=== PATIENT | female | born 1985 | race Caucasian/White ===

== ENCOUNTER → 2024-01-29 | Outpatient (CLI) | payer OTHER, SELFPAY | END | disposition home or self-care (01) | LOC: LABSPEC 16:59 | PROVIDERS: PCP Registered Nurse; Visit Provider Registered Nurse | DX: Z00.00 Encounter for general adult medical examination without abnormal findings (principal) ==

== ENCOUNTER → 2024-01-29 | Outpatient (CLI) | payer OTHER, SELFPAY ==
[2024-02-01 22:07] LABS: Chlamydia By Nucleic Acid AMP Negative (Negative); Gonococcus By Nucleic Acid AMP Negative (Negative)
[2024-02-06 10:41] LABS: HPV APTIMA, High Risk Positive (Negative); HPV Genotype 16, Aptima Negative (Negative); HPV Genotype 18,45 Aptima Negative (Negative)
== END | disposition home or self-care (01) ==
PROVIDERS: Referring Provider Registered Nurse; Visit Provider Registered Nurse
DX: Z12.4 Encounter for screening for malignant neoplasm of cervix (principal); O99.210 Obesity complicating pregnancy, unspecified trimester; E66.9 Obesity, unspecified; Z3A.00 Weeks of gestation of pregnancy not specified
CPT/HCPCS: 87086; 87491; 87591; 87624; 88175; G0145

== ENCOUNTER → 2024-02-08 | Outpatient (CLI) | payer OTHER, SELFPAY ==
[2024-02-08 17:32] LABS: Absolute Lymphocyte Count 1.86 X10^3/uL (0.83-4.51); Absolute Neutrophil Count 4.8 X10^3/uL (2.0-7.7); Basophil# 0.03 X10^3/uL; Basophil% 0.4 % (0-1); Eosinophil# 0.18 X10^3/uL; Eosinophils% 2.5 % (0-5); Hematocrit 32.9 % (37-47); Hemoglobin 11.4 g/dL (12.0-15.0); Lymphocyte # 1.86 X10^3/ul (0.83-4.51); Lymphocyte % 25.4 % (19-41); Mean Corp Hgb Conc 34.7 g/dL (32-36); Mean Corpuscular Hgb 29.8 pg (27.0-32.0); Mean Corpuscular Volume 86.1 fL (81-99); Monocyte# 0.47 X10^3/uL; Monocyte% 6.4 % (0-10); NRBC Flagged by Analyzer 0 % (0-5); Neutrophil # 4.75 X10^3/uL (2.7-7.7); Neutrophil % 64.8 % (47-70); Platelet Count 207 K/mm3 (150-450); RBC Distribution Width CV 12.6 % (11.6-14.6); RBC Distribution Width SD 39.4 fl (35.1-43.9); Red Blood Count 3.82 M/mm3 (4.2-5.4); White Blood Count 7.3 K/mm3 (4.4-11.0)
[2024-02-08 21:37] LABS: HIV - WCH Non-Reactive (Nonreactive); Hepatitis B Surface Antigen Non-Reactive (Nonreactive); Hepatitis C Antibody Non-Reactive (Nonreactive); Rubella IgG Reactive (Nonreactive); Syphilis Antibodies Non-reactive
== END | disposition home or self-care (01) ==
LOC: LAB 16:12
PROVIDERS: Referring Provider Registered Nurse; Visit Provider Registered Nurse
DX: O99.210 Obesity complicating pregnancy, unspecified trimester (principal); E66.9 Obesity, unspecified; Z3A.00 Weeks of gestation of pregnancy not specified
CPT/HCPCS: 36415; 83036; 85025; 86703; 86762; 86780; 86803; 86850; 86900; 86901; 87340

== ENCOUNTER → 2024-06-10 | Outpatient (CLI) | payer MEDICAID, SELFPAY ==
[2024-06-10 16:28] LABS: Absolute Lymphocyte Count 1.33 X10^3/uL (0.83-4.51); Absolute Neutrophil Count 6.4 X10^3/uL (2.0-7.7); Basophil# 0.02 X10^3/uL; Basophil% 0.2 % (0-1); Eosinophil# 0.13 X10^3/uL; Eosinophils% 1.5 % (0-5); Hematocrit 31.9 % (37-47); Hemoglobin 10.7 g/dL (12.0-15.0); Lymphocyte # 1.33 X10^3/ul (0.83-4.51); Lymphocyte % 15.5 % (19-41); Mean Corp Hgb Conc 33.5 g/dL (32-36); Mean Corpuscular Hgb 29.2 pg (27.0-32.0); Mean Corpuscular Volume 87.2 fL (81-99); Mean Platelet Vol. 9.2 fl (6.2-12.0); Monocyte# 0.59 X10^3/uL; Monocyte% 6.9 % (0-10); NRBC Flagged by Analyzer 0 % (0-5); Neutrophil # 6.36 X10^3/uL (2.7-7.7); Neutrophil % 74.2 % (47-70); Platelet Count 204 K/mm3 (150-450); RBC Distribution Width CV 13.5 % (11.6-14.6); RBC Distribution Width SD 42.4 fl (35.1-43.9); Red Blood Count 3.66 M/mm3 (4.2-5.4); White Blood Count 8.6 K/mm3 (4.4-11.0)
[2024-06-10 16:35] LABS: Glucose Challenge Gest 1H 50g 157 mg/dL (70-140)
[2024-06-13 19:21] LABS: HIV - WCH Non-Reactive (Nonreactive); Syphilis Antibodies Non-reactive
== END | disposition home or self-care (01) ==
LOC: BWCLAB 14:34
PROVIDERS: Advanced Practice Midwife; Referring Provider Obstetrics & Gynecology; Visit Provider Obstetrics & Gynecology
DX: O09.90 Supervision of high risk pregnancy, unspecified, unspecified trimester (principal); Z3A.00 Weeks of gestation of pregnancy not specified; Z13.1 Encounter for screening for diabetes mellitus
CPT/HCPCS: 36415; 82950; 85025; 86703; 86780

== ENCOUNTER → 2024-07-04 | Outpatient (CLI) | payer MEDICAID, SELFPAY ==
[2024-07-04 07:36] LABS: Bedside Glucose 97 mg/dL (74-106)
[2024-07-04 07:45] LABS: Glucose GTT-Gestation. Fasting 101 mg/dL (<105)
[2024-07-04 09:10] LABS: Glucose GTT-Gestational 1 Hr 195 mg/dL (<190)
[2024-07-04 11:40] LABS: Glucose GTT-Gestational 2 Hr 214 mg/dL (<165)
[2024-07-04 11:54] LABS: Glucose GTT-Gestational 3 Hr 90 L (<145)
== END | disposition home or self-care (01) ==
LOC: LAB 07:08
PROVIDERS: Referring Provider Advanced Practice Midwife; Visit Provider Advanced Practice Midwife
DX: O99.810 Abnormal glucose complicating pregnancy (principal); Z3A.00 Weeks of gestation of pregnancy not specified
CPT/HCPCS: 36415; 82951; 82952; 82962

== ENCOUNTER → 2024-08-05 | Outpatient (CLI) | payer MEDICAID, SELFPAY | END | disposition home or self-care (01) | LOC: LABSPEC 16:16 | PROVIDERS: Referring Provider Obstetrics & Gynecology; Visit Provider Obstetrics & Gynecology | DX: O09.93 Supervision of high risk pregnancy, unspecified, third trimester (principal); Z3A.00 Weeks of gestation of pregnancy not specified | CPT/HCPCS: 87081 ==

== ENCOUNTER 2024-08-23 19:23 | Inpatient (IN) | payer MEDICAID, SELFPAY ==
[2024-08-23 19:33] VITALS: BMI 41.3
[2024-08-23 19:41] VITALS: BP 149/76; PULSE 104; O2SAT 97
[2024-08-23 19:48] VITALS: BP 147/89; BP 165/88; PULSE 93; PULSE 99; RESP 18; TEMP 37.1
[2024-08-23] MEDS: Lactated Ringers 1,000 ML 50 ML IV (20:30)
[2024-08-23 20:54] LABS: Absolute Lymphocyte Count 2.85 X10^3/uL (0.83-4.51); Absolute Neutrophil Count 6.5 X10^3/uL (2.0-7.7); Basophil# 0.04 X10^3/uL; Basophil% 0.4 % (0-1); Eosinophil# 0.17 X10^3/uL; Eosinophils% 1.6 % (0-5); Hematocrit 33.2 % (37-47); Hemoglobin 11.8 g/dL (12.0-15.0); Lymphocyte # 2.85 X10^3/ul (0.83-4.51); Mean Corp Hgb Conc 35.5 g/dL (32-36); Mean Corpuscular Hgb 30.5 pg (27.0-32.0); Mean Corpuscular Volume 85.8 fL (81-99); Monocyte# 0.94 X10^3/uL; Monocyte% 8.9 % (0-10); NRBC Flagged by Analyzer 0 % (0-5); Neutrophil # 6.46 X10^3/uL (2.7-7.7); Neutrophil % 61.2 % (47-70); Platelet Count 209 K/mm3 (150-450); RBC Distribution Width CV 13.3 % (11.6-14.6); RBC Distribution Width SD 41.1 fl (35.1-43.9); Red Blood Count 3.87 M/mm3 (4.2-5.4); White Blood Count 10.6 K/mm3 (4.4-11.0)
[2024-08-23] MEDS: 0.9% Saline Lock 10 ML Syringe IV (21:04)
[2024-08-23] MEDS: DiphenhydrAMINE 50 MG/ML Syringe IV (21:05)
[2024-08-23] MEDS: miSOPROStol 25 MCG TABLET VAGINAL (21:05)
[2024-08-23 22:17] LABS: Bedside Glucose 121 mg/dL (74-106)
[2024-08-23 22:17] LABS: Bedside Glucose 130 mg/dL (74-106); Syphilis Antibodies Nonreactive (Nonreactive)
[2024-08-23 22:24] LABS: ALB/GLOB Ratio 1.2 RATIO (0.9-2.4); AST(SGOT) 30 U/L (<=31); Alanine Aminotransfer ALT/SGPT 23 U/L (<=34); Albumin, Serum 3.6 g/dL (3.5-5.0); Alkaline Phosphatase 129 U/L (35-104); Anion Gap 14 (5-15); BUN 10 mg/dL (4-19); BUN/Creat Ratio 16.2 RATIO (10-20); Calcium 9.3 mg/dL (7.6-11.0); Carbon Dioxide 18.3 mmol/L (22.0-29.0); Chloride 102 mmol/L (96-108); Creatinine, Serum 0.6 mg/dL (0.6-1.0); EST Glomerular Filtration Rate 117 (>60); Estimated Creatinine Clearance 151.94 ml/min; Glucose 127 mg/dL (70-99); Potassium 3.8 mmol/L (3.3-5.1); Protein, Total 6.5 g/dL (5.9-8.4); Sodium Level 134 mmol/L (133-145); Total Bilirubin 0.19 mg/dL (0.00-1.30)
[2024-08-23] MEDS: Mag Hydrox/Al Hydrox/Simeth 30 ML UDC PO (22:38)
[2024-08-23 23:00] LABS: Bedside Glucose 103 mg/dL (74-106)
[2024-08-23] MEDS: metFORMIN HCl 1,000 MG Tablet 1000 MG PO (23:18)
[2024-08-23] MEDS: hydrOXYzine PAM 25 MG Capsule PO (23:18)
[2024-08-23 23:21] VITALS: BP 121/71; PULSE 86; RESP 16; TEMP 36.6; O2SAT 97
[2024-08-24] VITALS (72 sets, daily range): BP systolic 108–181; BP diastolic 56–115; PULSE 58–202; RESP 16–20; TEMP 36.4–38.1; O2SAT 80–100
[2024-08-24] MEDS: Lactated Ringers 1,000 ML 999 ML IV (00:52)
[2024-08-24 01:04] LABS: Bedside Glucose 102 mg/dL (74-106)
[2024-08-24] MEDS: Terbutaline 1 MG/ML Vial 0.25 MG SC (01:37)
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
--- NOTE | 2024-08-24 02:00 | PCM.PN.BLA ---
Progress Note seen for cat II tracing- cervix closed but recurrent lates. given dose of terbutaline. scanned and vertex, spontaneous movement seen and positive scalp stimulatiion, now cat I and reassuring. will give rest and reevaluate in 1 hour.
[2024-08-24 04:00] LABS: Bedside Glucose 103 mg/dL (74-106)
[2024-08-24] MEDS: fentaNYL 100 MCG/2 ML Ampul IV ×2 (04:40→05:51)
[2024-08-24] MEDS: Oxytocin 15 Units/NS 250ml 15 UNITS/250 ML IV.SOLN 2 UNITS IV (05:32)
[2024-08-24] MEDS: 0.9% Saline Lock 10 ML Syringe IV (05:51)
[2024-08-24 07:37] LABS: Bedside Glucose 88 mg/dL (74-106)
[2024-08-24] MEDS: fentaNYL-bupivacaine (epidural) 100 ML BAG EPIDURAL ×5 (07:50→21:55)
[2024-08-24] MEDS: Lactated Ringers 1,000 ML 200 ML IV ×3 (07:55→18:18)
[2024-08-24 11:29] LABS: Bedside Glucose 95 mg/dL (74-106)
[2024-08-24] MEDS: LACTATED RINGERS 500 ML 999 ML IV (12:47)
[2024-08-24] MEDS: Amnioinfusion- 0.9% NS 1,000 ML IV.SOLN. 1000 ML INTRA-UTER (13:04)
[2024-08-24 13:31] LABS: Bedside Glucose 75 mg/dL (74-106)
[2024-08-24] MEDS: Ondansetron 4 MG/2 ML Vial IV (14:24)
[2024-08-24 15:19] LABS: Bedside Glucose 111 mg/dL (74-106)
[2024-08-24 16:32] LABS: Bedside Glucose 86 mg/dL (74-106)
--- NOTE | 2024-08-24 17:15 | PCM.PN.BLA ---
Progress Note pitocin going up slowly do to tracing having late decels at higher doses, then when it is turned down the tracing returns to cat i. increased to 3 MU now. will recheck soon
[2024-08-24 17:38] LABS: Bedside Glucose 73 mg/dL (74-106)
[2024-08-24] MEDS: Acetaminophen 500 MG Tablet PO (18:11)
[2024-08-24 18:38] LABS: Bedside Glucose 65 mg/dL (74-106)
[2024-08-24 18:38] LABS: Bedside Glucose 73 mg/dL (74-106)
[2024-08-24 18:55] LABS: Bedside Glucose 63 mg/dL (74-106)
[2024-08-24 18:55] LABS: Bedside Glucose 105 mg/dL (74-106)
[2024-08-24] MEDS: 0.9% Normal Saline 1,000 ML IV.SOLN. 300 ML INTRA-UTER (21:40)
[2024-08-24 22:00] LABS: Bedside Glucose 106 mg/dL (74-106)
[2024-08-24 22:25] LABS: Bedside Glucose 66 mg/dL (74-106)
[2024-08-24] MEDS: hydrOXYzine PAM 25 MG Capsule PO (22:28)
[2024-08-24 23:04] LABS: Bedside Glucose 55 mg/dL (74-106)
[2024-08-24 23:04] LABS: Bedside Glucose 88 mg/dL (74-106)
[2024-08-25] VITALS (33 sets, daily range): BP systolic 121–148; BP diastolic 58–99; PULSE 68–141; RESP 16–18; TEMP 36.4–37.9; O2SAT 96–100
[2024-08-25] MEDS: Acetaminophen 500 MG Tablet PO (00:14)
[2024-08-25] MEDS: Gentamicin IV 270 MG in Dextrose 5%-Water (50mL Bag) 50 ML 100 MG IVPB (00:48)
--- NOTE | 2024-08-25 00:50 | PCM.PN.BLA ---
Progress Note patient complete and pushing, tachycardia started on clinda and gent. pushing fairly effectively, taking direction well. continue exp management
[2024-08-25 01:08] LABS: Bedside Glucose 100 mg/dL (74-106)
[2024-08-25] MEDS: Clindamycin 900 MG/50 ML BAG 75 MG IV (01:43)
[2024-08-25] MEDS: Lidocaine 1% (20 ml mdv) 20 ML Vial INFILT (01:49)
[2024-08-25] MEDS: fentaNYL-bupivacaine (epidural) 100 ML BAG EPIDURAL (02:07)
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
--- NOTE | 2024-08-25 02:35 | DCINST_ITS ---
Discharge Instructions Diet Discharge Diet: No restrictions DC O2, CPAP, BIPAP needs Home O2 Discharge instructions: No Dressing / Incision Discharge Activity: Return to Normal Activity, May Not Drive (while taking narcotic pain medications.) and May Shower May resume sexual activity in: 4-6 weeks Dressing / Incision Call your doctor if your incision/area has: Continuous Slow Oozing, Sudden Increased Bleeding, Increased Pain/ Swelling, Increased Redness and Foul Smelling Discharge Follow Up Care Please Follow Up With: Brinda Vergara MD When: Call [phone] to make an appointment with your doctor in 6 weeks. If you had elevated blood pressure or 4th degree laceration, you will need to be seen in 2 weeks. Test Results: Test results from this visit will be discussed in further detail at your follow- up appointment, if applicable. Discharge Plan Admission Admit Date/Time: 08/23/24 19:23 Attending Provider: Brinda Vergara Primary Care Provider: Care PhysicianJen Primary Discharge Orders/Prescriptions Prescriptions: No Action Claritin 10 mg tablet,chewable 10 mg PO DAILY (DME) breast pump Device See Rx Instructions .ROUTE .MEDSUPPLY Qty: 1 0RF Rx Instructions: As directed ondansetron HCl 4 mg tablet 4 mg PO Q6H PRN (Reason: nausea and vomiting) Qty: 30 4RF (DME) Blood Glucose Test Strip See Rx Instructions .MEDSUPPLY Qty: 120 5RF Rx Instructions: As directed-fasting & 2 hr post meals (DME) blood-glucose meter Misc See Rx Instructions .MEDSUPPLY Qty: 1 0RF Rx Instructions: As directed- Test fasting and 2 hours after meals (DME) lancets Misc See Rx Instructions .MEDSUPPLY Qty: 200 5RF Rx Instructions: As directed-fasting & 2 hr post meals Prenate Elite (iron asp glyc) 20 mg iron- 1 mg tablet 1 tab PO DAILY Qty: 30 8RF metformin 500 mg tablet 1,000 mg PO QDAY Qty: 60 3RF Referrals / Follow Up: Care Physician,No Primary [Primary Care Provider] - Disposition Disposition (needs filled in before D/C Order can be placed): Home, Self Care
[2024-08-25 03:28] LABS: Bedside Glucose 91 mg/dL (74-106)
[2024-08-25 03:28] LABS: Bedside Glucose 86 mg/dL (74-106)
[2024-08-25] MEDS: Oxytocin 15 Units/NS 250ml 15 UNITS/250 ML IV.SOLN 83 UNITS IV (03:53)
[2024-08-25 04:15] LABS: Bedside Glucose 87 mg/dL (74-106)
--- NOTE | 2024-08-25 04:39 | PLAC_PTH ---
PATIENT: SHEILA GARSIA LOC: [facility] U#:[id number] AGE/SX: 39/F ROOM: WP003 RE08/23/[address]: Dr. Brinda Vergara MD : 1985 BED: 1 DIS: 08/27/2024 SPEC #: [id number] RECD: 08/25/24 04:47 STATUS: WESLEY GILL #: [id number] JULIANN: 08/25/24 04:[address]: Brinda Vergara DEPT: SURGICAL PATHOLOGY RECD BY: Brenden Novak ENTERED: 08/25/24 06:58 SP TYPE: PLACENTA OTHR DR: No Primary Care Phys Tissues: Placenta, NOS Procedures: Surgery Specimen Level V HEADER OPERATION: Vaginal delivery PRE-OP DIAGNOSIS: Routine TISSUE SUBMITTED: Placenta MICROSCOPIC DIAGNOSIS Mc placenta, 3rd trimester, 456 grams: * Acute chorioamnionitis. * Three vessel umbilical cord, unremarkable. * Mature chorionic villi with focal (limited) infarction. MICROSCOPIC DESCRIPTION Slides are reviewed. GROSS DESCRIPTION SPECIMEN: PLACENTA / CLINICAL INFORMATION: A. Weight: 3.245 kg B. Gestational Age: 39 weeks and 2 days C. Sex: Male PLACENTAL WEIGHT (POST FIXATION): 456 gm PLACENTAL DIMENSIONS: 15 x 16 x 3 cm PLACENTAL SHAPE: Usual ovoid PLACENTAL WEIGHT FOR GESTATIONAL AGE: Within 10-99th percentile (over/under percentile) MEMBRANES - Present A. Insertion: Marginal B. Site of rupture from edge: 4 cm from edge of placental disc C. Color of membrane: [id number] D. Abnormalities: A few white mucoid deposits are noted in the membranes. UMBILICAL CORD - Present A. Color: Capellan-leon B. Insertion: Paracentral C. Length: 37 cm D. Diameter: 1 cm E. Number of vessels: Three F. Abnormalities: None PLACENTAL DISC - Present A. Color of surface: Capellan-leon B. surface abnormalities: None C. Maternal cotyledons: Intact with minimal tears D. Attached retro placental clot: No clot E. Cut surface: Dark red and spongy F. Lesions: Sections reveal four capellan indurated areas. Largest measuring 2cm in greatest dimension. G. Separate clot: Absent SECTIONS SUBMITTED: (6 cassettes) 1. Membrane roll 2. Cord, maternal end, lesion 3. Cord, end, lesion 4. Placental disc, and maternal surfaces, lesion 5. Placental disc, and maternal surfaces, largest lesion 6. Placental disc, and maternal surfaces SJ.mr 08/26/2024 TC: CPT: 61350
[2024-08-25] MEDS: Oxytocin 15 Units/NS 250ml 15 UNITS/250 ML IV.SOLN 334 UNITS IV (05:10)
[2024-08-25 05:26] LABS: Pathology Specimen OB SEE PATHOLOGY REPORT
[2024-08-25] MEDS: Naproxen 500 MG Tablet PO ×2 (07:54→20:48)
[2024-08-25] MEDS: Hydrocortisone 2.5% Crm 1 APPLIC TOPICAL (07:54)
[2024-08-25] MEDS: Benzocaine/Lanolin/Aloe Vera 85 GM Spray 1 SPRAY TOPICAL (07:54)
[2024-08-25] MEDS: Clindamycin HCl 150 MG Capsule 300 MG PO (10:45)
[2024-08-25] MEDS: Acetaminophen 500 MG Tablet 1000 MG PO (15:13)
--- NOTE | 2024-08-25 15:38 | NURSING ---
Verbally instructed on pericare and instructions she'll receive at discharge. Questions answered and verbalized understanding.
[2024-08-26 03:30] VITALS: BP 141/87; PULSE 104; RESP 18; TEMP 36.3; O2SAT 99
[2024-08-26] MEDS: hydrOXYzine PAM 25 MG Capsule PO ×2 (03:32→09:55)
--- NOTE | 2024-08-26 04:39 | NURSING ---
Late care due to unit emergency.
[2024-08-26 04:50] VITALS: BP 119/72; PULSE 78; RESP 16; TEMP 36.3; O2SAT 98
[2024-08-26] MEDS: Naproxen 500 MG Tablet PO ×2 (09:55→18:31)
[2024-08-26 09:56] VITALS: BP 128/83; PULSE 72; RESP 16; TEMP 36.2; O2SAT 97
[2024-08-26 10:22] LABS: Bedside Glucose 81 mg/dL (74-106)
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
[2024-08-26 13:36] VITALS: BP 137/87; PULSE 77; RESP 16; TEMP 36.8; O2SAT 100
[2024-08-26] MEDS: Acetaminophen 500 MG Tablet 1000 MG PO ×2 (13:36→20:31)
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
[2024-08-26 20:24] VITALS: BP 136/82; PULSE 94; RESP 16; TEMP 36.4; O2SAT 97
[2024-08-26] MEDS: Benzocaine/Lanolin/Aloe Vera 85 GM Spray 1 SPRAY TOPICAL (23:39)
[2024-08-26] MEDS: Senna/Docusate Sodium 1 Tablet PO (23:48)
[2024-08-27 01:40] VITALS: BP 133/81; PULSE 98; RESP 16; TEMP 36.3; O2SAT 97
[2024-08-27] MEDS: Naproxen 500 MG Tablet PO (05:32)
[2024-08-27] MEDS: Acetaminophen 500 MG Tablet 1000 MG PO (05:32)
[2024-08-27] MEDS: Hydrocortisone 2.5% Crm 1 APPLIC TOPICAL (07:36)
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
--- NOTE | 2024-08-27 08:06 | PCM.DC.SUM ---
Providers Date of Admission: 08/23/24 Primary Care Physician: No Primary Care Phys Reason For Visit: VAG Diagnosis Discharge Diagnosis (1) Vaginal delivery: Status: Acute Code(s): O80 - Encounter for full-term uncomplicated delivery (2) Gestational diabetes mellitus (GDM) affecting , antepartum: Status: Acute Code(s): O24.419 - Gestational diabetes mellitus in , unspecified control Plan: 2 hour pp gct at 6 weeks (3) ADHD: Status: Acute Code(s): F90.9 - Attention-deficit hyperactivity disorder, unspecified type (4) PTSD (post-traumatic stress disorder): Status: Acute Code(s): F43.10 - Post-traumatic stress disorder, unspecified (5) Anxiety: Status: Acute Code(s): F41.9 - Anxiety disorder, unspecified Plan s/p PPD # 2 1. routine post delivery care 2. breast feeding- support given 3. rh positive 4. rubella immune 5. hotel status today Medications at Discharge Home Medications loratadine 10 mg chewable tablet (Claritin) 10 mg PO DAILY 01/18/24 ondansetron HCl 4 mg tablet 4 mg PO Q6H PRN nausea and vomiting #30 tabs 02/24/24 blood sugar diagnostic (Blood Glucose Test strips) #120 ea 07/04/24 blood-glucose meter #1 07/04/24 lancets #200 ea 07/04/24 vits 114-iron asparto gly 20 mg iron-folate no.1 1 mg tablet (Prenate Elite (iron asparto glycinate)) 1 tab PO DAILY #30 tabs 07/06/24 breast pump #1 07/08/24 metformin 500 mg tablet 1,000 mg (2 x 500 mg) PO QDAY #60 tabs 08/08/24 Hospital Course Operations None Procedures None Summary of Care Provided Hospital Course: for IOL for GDM, progressed to without complications. routine pp course. Weight / BMI Weight Weight: 240 lb 8 oz Body Mass Index (BMI) 41.3 ABG / Lab / Microbiology Data 08/23/24 20:30 08/23/24 20:30 Laboratory: Laboratory Results - last 24 hr 08/26/24 09:49: POC Glucose 81 D/C Instructions Discharge Diet: No restrictions May resume sexual activity in: 4-6 weeks Call your doctor if your incision/area has: Continuous Slow Oozing, Sudden Increased Bleeding, Increased Pain/ Swelling, Increased Redness and Foul Smelling Discharge DC O2, CPAP, BIPAP Needs Home O2 Discharge instructions: No Please Follow Up With: Brinda Vergara MD When: Call [phone] to make an appointment with your doctor in 6 weeks. If you had elevated blood pressure or 4th degree laceration, you will need to be seen in 2 weeks. Meaningful Use Info Meaningful Use Meaningful Use Diagnoses (Choose all that apply): None applicable Ischemic Stroke Statin Dosing Therapy Reference: STATIN DOSE THERAPY REFERENCE: * Patients > 75 years receive moderate or high dose statin therapy. * Patients 75 years or YOUNGER should receive HIGH intensity statin dose unless contraindicated. You will be required to document reason for non-treatment if statin daily dose does not meet guidelines. HIGH DOSE STATIN THERAPY DAILY Atorvastatin > than or = to 40 mg Rosuvastatin > than or = to 20 mg Amlodipine + Atorvastatin > than or = to 2.5/40 mg Ezetimibe + Simvastatin 10/80 mg Simvastatin 80mg Discharge Plan Admission Admit Date/Time: 08/23/24 19:23 Attending Provider: Brinda Vergara Primary Care Provider: Care PhysicianJen Primary Discharge Orders/Prescriptions Prescriptions: No Action Claritin 10 mg tablet,chewable 10 mg PO DAILY (DME) breast pump Device See Rx Instructions .ROUTE .MEDSUPPLY Qty: 1 0RF Rx Instructions: As directed ondansetron HCl 4 mg tablet 4 mg PO Q6H PRN (Reason: nausea and vomiting) Qty: 30 4RF (DME) Blood Glucose Test Strip See Rx Instructions .MEDSUPPLY Qty: 120 5RF Rx Instructions: As directed-fasting & 2 hr post meals (DME) blood-glucose meter Misc See Rx Instructions .MEDSUPPLY Qty: 1 0RF Rx Instructions: As directed- Test fasting and 2 hours after meals (DME) lancets Misc See Rx Instructions .MEDSUPPLY Qty: 200 5RF Rx Instructions: As directed-fasting & 2 hr post meals Prenate Elite (iron asp glyc) 20 mg iron- 1 mg tablet 1 tab PO DAILY Qty: 30 8RF metformin 500 mg tablet 1,000 mg PO QDAY Qty: 60 3RF Referrals / Follow Up: Care Physician,No Primary [Primary Care Provider] - Disposition Disposition (needs filled in before D/C Order can be placed): Home, Self Care
[2024-08-27 09:00] VITALS: BP 139/92; PULSE 94; RESP 16; TEMP 36.2; O2SAT 98
[2024-08-27] MEDS: hydrOXYzine PAM 25 MG Capsule PO (11:48)
[2024-08-27] MEDS: Prenatal Vits Tablet 1 TABLET PO (13:12)
[2024-08-27 13:24] VITALS: BP 137/102; TEMP 36.6
== END 2024-08-27 17:30 | disposition home or self-care (01) | DRG 560 ==
PROVIDERS: Admitting Provider Obstetrics & Gynecology; Visit Provider Obstetrics & Gynecology
DX: O24.425 Gestational diabetes mellitus in childbirth, controlled by oral hypoglycemic drugs (principal); Z37.0 Single live birth; O99.344 Other mental disorders complicating childbirth; F17.290 Nicotine dependence, other tobacco product, uncomplicated; J45.909 Unspecified asthma, uncomplicated; O99.214 Obesity complicating childbirth; F41.9 Anxiety disorder, unspecified; F90.9 Attention-deficit hyperactivity disorder, unspecified type; O99.334 Smoking (tobacco) complicating childbirth; O76 Abnormality in fetal heart rate and rhythm complicating labor and delivery; O69.81X0 Labor and delivery complicated by cord around neck, without compression, not applicable or unspecified; O99.52 Diseases of the respiratory system complicating childbirth; O70.1 Second degree perineal laceration during delivery; F43.10 Post-traumatic stress disorder, unspecified; Z88.0 Allergy status to penicillin; Z3A.39 39 weeks gestation of pregnancy
CPT/HCPCS: 59025; 59050; 80053; 82962; 85025; 86780; 86850; 86900; 86901; 88307; A4216; J2405

== ENCOUNTER → 2024-10-13 | Outpatient (CLI) | payer MEDICAID, SELFPAY | END | disposition home or self-care (01) | PROVIDERS: Referring Provider Obstetrics & Gynecology; Visit Provider Obstetrics & Gynecology | DX: Z12.4 Encounter for screening for malignant neoplasm of cervix (principal) | CPT/HCPCS: 87624; 88175; G0145 ==

== ENCOUNTER 2024-12-09 16:32 | Outpatient (CLI) | payer MEDICAID, SELFPAY ==
--- NOTE | 2024-12-09 | UTC_PTH ---
PATIENT: SHEILA GARSIA LOC: [facility] #:[id number] AGE/SX: 39/F ROOM: RE12/09/[address]: Dr. Tamela Forman DO : 1985 BED: DIS: 12/09/2024 SPEC #: [id number] RECD: 12/09/24 14:40 STATUS: WESLEY FAYEJeremias #: [id number] JULIANN: 12/09/24 00:[address]: Tamela Forman DEPT: SURGICAL PATHOLOGY RECD BY: Daquan Evans ENTERED: 12/12/24 08:41 SP TYPE: PETER SHAH DR: No Primary Care Phys Tissues: A - Uterine cervix, NOS B - Endocervical Procedures: Immunohistochemical Stains Surgery Specimen Level IV HEADER OPERATION: Colposcopy PRE-OP DIAGNOSIS: LGSIL, HPV+ TISSUE SUBMITTED: A- 1o'clock, B- ECC MICROSCOPIC DIAGNOSIS A. Uterine cervix, 1:00, colposcopic biopsy: * Low grade squamous epithelial lesion (MALIA I) (See COMMENT) B. Endocervix, curettage: * Small aggregates of benign keratinocytes and endocervical mucous columnar epithelial cells COMMENT An immunohistochemical stain for p16 stains isolated and focal squamous cells, which is negative for high grade OSITO. All matched controls reacted appropriately. These tests were developed and their performance characteristics determined by [facility]. They may not have been cleared or approved by the U.S. Food and Drug Administration. The FDA has determined that such clearance or approval is not necessary. The above immunohistochemical/dualISH markers are viewed by the Pathologist. MICROSCOPIC DESCRIPTION Slides are reviewed. GROSS DESCRIPTION Received in 2 formalin containers labeled with the patient's name and date of .? Designated as:A.? 1:00 is a 0.4 cm capellan tissue fragment admixed with multiple flecks of apparent soft tissue, all <0.1 cm.? Entirely submitted in 1 cassette.? Smaller flecks of apparent soft tissue are unlikely to survive processing. B.? ECC are few flecks of apparent soft tissue and mucoid material which is spun down into a cell block. [place] 12/12/2024 CPT:[id number]
== END 2024-12-09 23:59 | disposition home or self-care (01) ==
LOC: LABSPEC 16:32
PROVIDERS: Referring Provider Obstetrics & Gynecology; Visit Provider Obstetrics & Gynecology
DX: N87.0 Mild cervical dysplasia (principal)
CPT/HCPCS: 88305; 88342

== ENCOUNTER → 2025-04-11 | Outpatient (CLI) | payer MEDICAID, SELFPAY | END | disposition home or self-care (01) | LOC: LABSPEC 15:59 | PROVIDERS: Visit Provider Obstetrics & Gynecology | DX: N89.8 Other specified noninflammatory disorders of vagina (principal) | CPT/HCPCS: 87070; 87205 ==